=== PATIENT | male | born 1960 | race Caucasian/White ===

== ENCOUNTER → 2017-07-19 | Outpatient (CLI) | payer BC ==
--- NOTE | 2017-07-19 13:27 | XR ---
EXAMINATION TYPE: XR cervical spine comp DATE OF EXAM: 07/19/2017 COMPARISON: NONE HISTORY: Pain TECHNIQUE: Four views are submitted. FINDINGS: The odontoid is intact. There are no compression deformities. The prevertebral soft tissue structur es are within normal limits. Retrolisthesis of C3 on C4 with degenerative disc disease. Severe degen erative changes C5-C6 with moderate changes at C4-C5 and C6-C7. Foraminal encroachment suspected at l evels C3-4, C4-5 and C5-C6. Suspect a calcified granuloma in the right upper lobe. IMPRESSION: 1. Multilevel degenerative disc disease. Follow-up MRI suggested.
== END | disposition home or self-care (01) ==
LOC: RADXRMAIN 12:29
PROVIDERS: ATTEND Family Medicine
DX: M50.31 Other cervical disc degeneration, high cervical region (principal)
CPT/HCPCS: 72050

== ENCOUNTER → 2017-08-10 | Outpatient (CLI) | payer BC ==
--- NOTE | 2017-08-14 11:24 | MR ---
EXAMINATION TYPE: MR cervical spine wo con DATE OF EXAM: 08/10/2017 2:32 PM COMPARISON: NONE HISTORY: Cervicalgia / Cervical disc disorder Multiplanar MultiSpin echo imaging of the cervical spine was performed. Comparison: none C2-C3: No evidence for degenerative disc disease. No disc bulge/herniation or protrusion. No Canal stenosis. Foramina are patent bilaterally. C3-C4: Moderate disc desiccation. Circumferential disc bulge greatest posteriorly with effacement of the ventral thecal sac. There is mild central stenosis. Bilateral foraminal encroachment noted. C4-C5: Moderate to severe disc desiccation. Circumferential disc bulge greatest posteriorly. Effaceme nt of the ventral thecal sac with [id number] central stenosis. Bilateral foraminal encroachment identified. C5-C6: Moderate disc desiccation. Circumferential disc bulge greatest posteriorly with effacement of the ventral thecal sac. There is mild central stenosis. Bilateral foraminal encroachment noted. C6-C7: Mild disc desiccation noted. No disc bulge/herniation or protrusion. No Canal stenosis. Fora nayeli are patent bilaterally. C7-T1: No evidence for degenerative disc disease. No disc bulge/herniation or protrusion. No Canal stenosis. Foramina are patent bilaterally. Cervical segments are intact. There is normal alignment. Cervical spinal cord is of normal signal. Craniovertebral junction relationships are within normal limits. Chronic sinusitis noted. IMPRESSION: 1. Multilevel degenerative disc disease with central stenosis at C3-4, C4-5 and C5-6 as discussed abo ve.
== END | disposition home or self-care (01) ==
LOC: RADMRIMAIN 13:57
PROVIDERS: ATTEND Family Medicine
DX: M50.31 Other cervical disc degeneration, high cervical region (principal); M48.02 Spinal stenosis, cervical region; M50.221 Other cervical disc displacement at C4-C5 level
CPT/HCPCS: 72141

== ENCOUNTER → 2018-04-21 | Outpatient (CLI) | payer BC ==
--- NOTE | 2018-04-21 08:16 | CT ---
EXAMINATION TYPE: CT sinus wo con DATE OF EXAM: 04/21/2018 COMPARISON: None HISTORY: sinusitis CT DLP: [address] of the paranasal sinuses was performed in the axial and coronal planes. Bone and soft tissue settings are submitted. The paranasal sinuses demonstrate normal aeration and development. There is complete opacification right maxillary sinus with obstruction of the right ostiomeatal unit. There is mild mucosal thickening left maxillary sinus. Obstruction of the left ostiomeatal unit note d as well as. Moderately severe opacification of the ethmoid air cells noted. Mild mucosal thickening of the frontal sinus and sphenoid sinus. Nasal septal deviation from left to right. No bony destructive changes are seen within the field of view. IMPRESSION: Moderately severe pansinusitis with obstruction of the bilateral ostiomeatal units. Underlying polypo sis not excluded.
== END | disposition home or self-care (01) ==
LOC: RADCTMAIN 07:40
PROVIDERS: ATTEND Otolaryngology
DX: J32.4 Chronic pansinusitis (principal)
CPT/HCPCS: 70486

== ENCOUNTER 2018-06-18 09:31 | Day surgery (SDC) | payer BC ==
[2018-06-12 11:48] VITALS: BMI 22.7
[~2018-06-18 09:31] MED LIST: DEXAMETHASONE SOD PHOSPHATE 4 MG/ML 1 ML VIAL IV ONE; FAMOTIDINE 20 MG/2 ML VIAL IV ONE; LACTATED RINGERS 1,000 ML IV SCH; LIDOCAINE 1% 20 ML VIAL (10MG/ML) FOR IV START INTRADERMA PRN; ONDANSETRON 4 MG/2 ML VIAL IVP ONE; ceFAZolin 1,000 MG in DEXTROSE/WATER 1 50ML.BAG IV ONE
[2018-06-18 10:52] VITALS: RESP 16
[2018-06-18] MEDS: OXYMETAZOLINE 0.05% NASL SPRAY 1 SPRAY BOTTLE NASAL ONE ×5 (11:00→11:22)
[2018-06-18] MEDS ORDERED: fentaNYL (PF) 50 MCG/ML 2 ML AMP ONE (12:18)
[2018-06-18] MEDS ORDERED: DEXAMETHASONE SOD PHOS (MDV) 100 MG/10 ML VIAL ONE (12:18)
[2018-06-18] MEDS ORDERED: ePHEDrine SULFATE/0.9% NACL/PF 50 MG/5 ML SYRINGE IV ONE (12:18)
[2018-06-18] MEDS ORDERED: PROPOFOL 10 MG/ML 20 ML VIAL IV ONE (12:18)
[2018-06-18] MEDS ORDERED: LIDOCAINE 1% INJ 10MG/ML (20 ML MDV) ONE (12:18)
[2018-06-18] MEDS ORDERED: SUCCINYLCHOLINE CHLORIDE 100 MG/5 ML SYR IV ONE (12:18)
[2018-06-18] MEDS ORDERED: MIDAZOLAM 2 MG/2 ML VIAL ONE (12:18)
[2018-06-18] MEDS ORDERED: BACITRACIN 500 UNIT/GM OINT 28.4 GM TUBE TOPICAL ONE (12:38)
[2018-06-18] MEDS ORDERED: LIDOCAINE 1%-EPI 1:100,000 20 ML VIAL SQ ONE ×2 (12:38)
[2018-06-18] MEDS ORDERED: LACTATED RINGERS 1,000 ML IV ONE (12:40)
--- NOTE | 2018-06-18 13:30 | P.OP ---
Date of Procedure: 06/18/18 Preoperative Diagnosis: Deviated nasal septum Inferior turbinate hypertrophy Chronic sinusitis Sinonasal polyposis Postoperative Diagnosis: Same Procedure(s) Performed: Septoplasty Outfracture and submucous resection of the inferior turbinates Bilateral endoscopic sinus surgery including bilateral maxillary antrostomy with removal of tissue from the maxillary sinuses, bilateral anterior and posterior ethmoidectomy, bilateral sphenoidotomy and frontal sinusotomy including balloon sinus plasty and exploration of these sinuses Anesthesia: GOPAL Surgeon: Yifan Carmona Estimated Blood Loss (ml): 10 Pathology: other (Nasal septal bone and cartilage) Condition: stable Disposition: PACU Indications for Procedure: This is a 57-year-old white male whose had difficulties with chronic nasal airway obstruction congestion and decreased sense of smell and recurrent sinusitis with computed tomography scan evidence and physical exam evidence of deviated septum and inferior turbinate hypertrophy and sinonasal polyposis Operative Findings: Nasal septum deviated to the right, inferior turbinate hypertrophy, sinonasal polyps bilateral middle meatus moderate size with small polyps throughout the ethmoid sinuses. Mucosal thickening in the frontal and sphenoid sinuses Description of Procedure: The patient was brought in the operative suite and placed in a supine position. The patient underwent induction of general anesthesia with oral endotracheal intubation without difficulty. The patient was prepped and draped in usual aseptic fashion with the orbits in the operating field for monitoring throughout the case and the computed tomography scan sinuses computer screen for review throughout the case. 1% lidocaine with 1-100,000 epinephrine was infused submucosally both sides nasal septum as well as lateral nasal wall and anterior tips the middle turbinates and within the gross polyps themselves. While this was taking vasoconstrictive effect the inferior turbinates were infractured with the [place] elevator partial submucous resection inferior turbinates was performed with Coblation wand ablating a portion of the submucosal soft tissue and then outfractured with the [place] elevator. A left hemitransfixion incision was made and the mucoperichondrial and mucoperiosteal flap on the left elevated. Bony cartilaginous junction was disarticulated and the mucoperiosteal flap on the right was elevated. The nasoseptal deformities were removed Dorothea forceps and an inferior cartilaginous strip was removed leaving a full 1.5 cm caudal strut. Checking intranasally this corrected the nasoseptal deformities and the hemitransfixion incision was closed with a running 4-0 chromic. Full 0 endoscopic examination is performed bilaterally. Beginning on the left the middle turbinate was medialized with a [place] elevator. Gross polyps were removed with microdebrider. The maxillary ostia was located with a ballpoint probe and infundibulotomy was performed followed by uncinectomy. Polyps were removed from the maxillary sinus with giraffe forceps and curved suctioning area anterior and posterior ethmoidectomy were then performed from anterior to posterior to the level. The frontal ostia and sphenoid ostia were enlarged with balloon sinus plasty acclarent light guided system and the frontal and sphenoid sinuses were then explored endoscopically. Frontal and sphenoid osteotomy were then performed on the right and the same then explored endoscopically. The remainder the procedures were then followed on the right as they were on the left medialization turbinate myringotomy uncinectomy actually antrostomy with removal of tissue from the sinuses including cyst gross polypectomy anterior and posterior ethmoidectomy. Once this was completed a combination of standard and firm nasal pore nasal dressings were placed in the middle meatus under direct visualization and [place]ala airway splints coated with bacitracin ointment were placed intranasally bilaterally trans-septally with a 4-0 Vicryl suture. The pa tient was then suctioned in oral gastric fashion. The patient was allowed to emerge from general anesthesia well was extubated in the operating suite and transferred to postop recovery area in satisfactory condition
[2018-06-18 13:43] VITALS: TEMP 98.4
[2018-06-18] MEDS: HYDROmorphone 0.5 MG/0.5 ML SYRINGE IVP PRN ×2 (13:52→14:00)
[2018-06-18] MEDS ORDERED: ONDANSETRON 4 MG/2 ML VIAL IVP ONE (13:52)
[2018-06-18 15:17] VITALS: BP 138/81; PULSE 70
== END 2018-06-18 15:36 | disposition home or self-care (01) ==
LOC: OR 09:31
PROVIDERS: ATTEND Otolaryngology
DX: J34.2 Deviated nasal septum (principal); J34.3 Hypertrophy of nasal turbinates; J32.0 Chronic maxillary sinusitis; J33.8 Other polyp of sinus; J30.89 Other allergic rhinitis; G47.33 Obstructive sleep apnea (adult) (pediatric); M79.7 Fibromyalgia; K21.9 Gastro-esophageal reflux disease without esophagitis; M81.0 Age-related osteoporosis without current pathological fracture; Z87.891 Personal history of nicotine dependence; Z79.899 Other long term (current) drug therapy
CPT/HCPCS: 30520; 30930; 31267; 31257; 31253; J2250; J1100 ×2; J2405; J2001; J3010; J0690; J0330; J2704; J1170; 88300; 88305

== ENCOUNTER 2021-08-24 07:57 | Day surgery (SDC) | payer BC ==
[2021-08-22 15:53] VITALS: BMI 22.6
[2021-08-24] MEDS ORDERED: LACTATED RINGERS 1,000 ML IV SCH (08:16)
[2021-08-24 08:25] VITALS: TEMP 97.8
[2021-08-24] MEDS ORDERED: LACTATED RINGERS 1,000 ML IV ONE (08:32)
[2021-08-24] MEDS ORDERED: PROPOFOL 10 MG/ML 20 ML VIAL IV ONE (09:02)
--- NOTE | 2021-08-24 09:03 | P.GSHP ---
History of Present Illness H&P Date: 08/24/21 Chief Complaint: History of colon polyps This is a 61-year-old male who presents today for colonoscopy. Patient denies any significant GI complaints. Patient's previous history of colon polyps. Past Medical History Past Medical History: Fibromyalgia, GERD/Reflux, Osteoarthritis (OA), Sleep Apnea/CPAP/BIPAP Additional Past Medical History / Comment(s): Occ GERD. Hx sinus infections, no cpap used, environmental allergies; hemorrhoids History of Any Multi-Drug Resistant Organisms: None Reported Past Surgical History: Joint Replacement Additional Past Surgical History / Comment(s): left hip replacement, Sinus surgery/deviated septum, colonoscopy Past Anesthesia/Blood Transfusion Reactions: No Reported Reaction Smoking Status: Former smoker - Past Family History Father Family Medical History: Cancer Mother Family Medical History: Cancer Sister(s) Family Medical History: Cancer Additional Family Medical History / Comment(s): melanoma Medications and Allergies Home Medications Medication Instructions Recorded Confirmed Type Naproxen Sodium [Aleve] 220 mg PO BID PRN 08/22/21 08/22/21 History Neuriva 1 tab PO DAILY 08/22/21 08/24/21 History Prostate Health (Otc) 1 tab PO DAILY 08/22/21 08/24/21 History T-Male (Testosterone Otc) 1 tab PO DAILY 08/22/21 08/24/21 History Allergies Allergy/AdvReac Type Severity Reaction Status Date / Time plants,trees,grass,mold Allergy Unknown Uncoded 08/22/21 15:36 Surgical - Exam Vital Signs Temp Pulse Resp BP Pulse Ox 97.8 F 78 18 135/78 98 08/24/21 08:24 08/24/21 08:24 08/24/21 08:24 08/24/21 08:24 08/24/21 08:24 - General well developed, well nourished, no distress - Eyes PERRL - ENT normal pinna - Neck no masses - Respiratory normal expansion - Cardiovascular Rhythm: regular - Abdomen Abdomen: soft, non tender Assessment and Plan Assessment: History of colon polyps perform colonoscopy
--- NOTE | 2021-08-24 09:16 | P.OP ---
Date of Procedure: 08/24/21 Preoperative Diagnosis: History of colon polyps Postoperative Diagnosis: Mild diverticulosis Procedure(s) Performed: Colonoscopy Anesthesia: MAC Surgeon: Rex Lewis Pathology: none sent Condition: stable Disposition: PACU Description of Procedure: The patient's placed on the endoscopy table in the lateral position. He received IV sedation. Digital rectal exam was performed. This revealed no ebonized. Flexible colonoscope was then placed patient anus and passed throughout the entire colon. The ileocecal valve was visualized. The cecum, ascending and transverse colon appeared normal. In the descending; was mild diverticular changes. The scope was then brought back the rectum and this ap peared normal. Scope withdrawn for patient.
[2021-08-24 09:37] VITALS: BP 152/80; PULSE 52; RESP 16
== END 2021-08-24 09:48 | disposition home or self-care (01) ==
LOC: ORWHC2ENDO 07:57
PROVIDERS: ATTEND Surgery
DX: Z12.11 Encounter for screening for malignant neoplasm of colon (principal); K57.30 Diverticulosis of large intestine without perforation or abscess without bleeding; Z86.010 Personal history of colon polyps; M79.7 Fibromyalgia; K21.9 Gastro-esophageal reflux disease without esophagitis; M19.90 Unspecified osteoarthritis, unspecified site; G47.30 Sleep apnea, unspecified; Z96.642 Presence of left artificial hip joint; Z98.890 Other specified postprocedural states; Z87.891 Personal history of nicotine dependence; Z79.899 Other long term (current) drug therapy; Z79.890 Hormone replacement therapy; Z88.8 Allergy status to other drugs, medicaments and biological substances; Z80.8 Family history of malignant neoplasm of other organs or systems
CPT/HCPCS: J2704; G0121; 45378